=== PATIENT | female | born 1960 | race Caucasian/White ===

== ENCOUNTER 2020-07-19 10:24 | Emergency (ER) | payer OTHER, BC, SELFPAY ==
--- NOTE | ~2020-07-19 | XR_ITS ---
EXAMINATION: XR ankle RT min 3V INDICATION: Right ankle pain, initial encounter TECHNIQUE: Four views of the right ankle are obtained. COMPARISON: None available FINDINGS: There is an acute, traumatic, closed, oblique avulsion injury of the lateral malleolus. Sof t tissue swelling surrounds the fracture. No additional acute osseous findings are evident. Tiny dors al and plantar calcaneal enthesophytes are noted. IMPRESSION: 1. Acute avulsion injury lateral malleolus. Reviewed, dictated and finalized at location A.
--- NOTE | 2020-07-19 10:32 | ED.GENADULT ---
HPI - General Adult General Chief complaint: Extremity Injury, Lower Stated complaint: right ankle injury Time Seen by Provider: 07/19/20 10:32 Source: patient Mode of arrival: ambulatory Limitations: no limitations History of Present Illness HPI narrative: 59-year-old female patient presents to the [facility] with complaints of right ankle pain since last night. Patient states that she was at a restaurant and was walking on an uneven floor and twisted her right ankle. Patient states she has been icing it, elevating it and took some Tylenol and ibuprofen last night. Patient states she is able to walk on it but walks with a limp. Related Data Home Medications Medication Instructions Recorded Confirmed No Home Medications 07/19/20 07/19/20 Allergies Allergy/AdvReac Type Severity Reaction Status Date / Time No Known Allergies Allergy Verified 07/19/20 10:41 Review of Systems Review of Systems: Narrative: CONSTITUTIONAL: Denies fever, chills, or sweats. EYES: Denies visual changes, redness, or discharge. ENT: Denies rhinorrhea, congestion, sore throat, or otalgia. CARDIOVASCULAR: Denies chest pain, palpitations, or edema. RESPIRATORY: Denies cough or dyspnea. GASTROINTESTINAL: Denies abdominal pain, nausea, vomiting, or diarrhea. GENITOURINARY: Denies dysuria or hematuria. SKIN: Denies rash or itching. MUSCULOSKELETAL: Denies back pain, joint pain, or myalgia. Positive right ankle pain NEUROLOGIC: Denies headache, numbness, or weakness. PSYCHIATRIC: Denies anxiety or depression. PMFSH Social History Social History Gender identity (if verbalized by the patient): Female Comments At the time of my signature I agree with nursing past medical history, surgical, social, and family history. There is no relevant family history pertinent to the presenting complaint. Exam Narrative: Exam Narrative: GENERAL: Well-appearing, well-nourished, and in no acute distress. HEAD: Normocephalic, atraumatic. EYES: PERRLA and EOMI. ENT: Nares clear, no rhinorrhea or epistaxis. Mucous membranes moist. NECK: Supple. No lymphadenopathy CHEST: Clear to auscultation. No respiratory distress. HEART: Regular rate and rhythm. No murmur heard. Normal peripheral pulses. ABDOMEN: Soft, nontender, nondistended, normal active bowel sounds. EXTREMITIES: Patient is able to bear weight and ambulate but has increased pain to the right ankle. The R ankle is without obvious asymmetry or deformity when compared to the L ankle. Patient can flex have pain and extend normally, normal invert/james. No obvious surface trauma, ecchymosis, there is some soft tissue swelling noted over the lateral malleolus on the right ankle.. Bony tenderness to palpation over the lateral malleolus. Anterior talofibular ligament, posterior talofibular ligament, calcaneofibular ligament nontender and without swelling. No tenderness or deformity of the midfoot or over the proximal fifth metatarsal. Good DP and posterior tibial pulses and sensation to light touch normal. Talar tilt test is negative for ligament laxity to valgus or vargus stress. Negative anterior draw. Peroneal nerve is intact with strong eversion and plantar flexion. SKIN: Warm, dry, no rash. NEURO: No focal deficits. Alert and oriented x3. Course Reevaluation(s) Reevaluation #1: Reevaluated patient after x-ray resulted. Discussed with her that it does appear that she has an avulsion injury to her right ankle. Discussed with her we will go ahead and wrap her with an Truman wrap. Offered patient crutches however patient states that she feels more unsteady with crutches that she does without them. Discussed with her that I will go ahead and refer her to an orthopedic surgeon in case she needs further follow-up otherwise she can follow-up with her doctor as needed, continue taking Tylenol and ibuprofen for pain, elevating and icing as needed. Patient verbalized understa
[2020-07-19 10:41] VITALS: BP 146/95; PULSE 63; RESP 20; TEMP 37; O2SAT 98
== END 2020-07-19 10:59 | disposition home or self-care (01) ==
PROVIDERS: Emergency Provider Nurse Practitioner Family
DX: S99.911A Unspecified injury of right ankle, initial encounter (principal); X50.9XXA Other and unspecified overexertion or strenuous movements or postures, initial encounter
CPT/HCPCS: 73610; 99203; G0463